=== PATIENT | male | born 1960 | race Caucasian/White ===

== ENCOUNTER 2017-12-21 09:20 | Day surgery (SDC) | payer OTHER ==
[2017-12-13 11:47] VITALS: BMI 32.8
[2017-12-21] MEDS ORDERED: PROPOFOL 20 ML ONE ×3 (11:51→12:58)
[2017-12-21] MEDS ORDERED: BUPIVACAINE HCL/EPINEPHRINE/PF 30 ML VIAL IJ ONE (12:35)
[2017-12-21] MEDS ORDERED: MIDAZOLAM HCL 2 MG/2 ML SINGLE DOSE VIAL ONE (12:50)
[2017-12-21] MEDS ORDERED: fentaNYL CITRATE 250 MCG/5 ML VIAL ONE (12:50)
[2017-12-21] MEDS ORDERED: ceFAZolin SODIUM 1 GM VIAL ONE (13:14)
--- NOTE | 2017-12-21 13:49 | DS ---
Physical Examination Vital Signs: Vital Signs Temperature 98.1 F 12/21/17 10:20 Pulse Rate 76 12/21/17 10:20 Respiratory Rate 18 12/21/17 10:20 Blood Pressure 129/79 12/21/17 10:20 O2 Sat by Pulse Oximetry (%) 97 12/21/17 10:20 Discharge Summary Reason For Visit: MEDIAL MENISCAL TEAR LEFT KNEE Condition: Good - Instructions Diet, Activity, Other Instructions: Post Operative Instructions: Knee Arthroscopy Dr Fernando Means 1. Pain following an arthroscopy is variable. Some patients will have more pain than others. You have been provided with a prescription for medication that contains a narcotic. You are not allowed to drive while on this medication. You should NOT take Tylenol (Acetaminophen) when taking the pain medication ( it will result in an overdose). Feel free to take medications such as Ibuprofen or Naprosyn in addition to the pain medicine if you do not have any problems with the NSAID class of medications. 2. You are allowed to remove the bandages and shower in 24 hours unless directed otherwise. You are not allowed to bathe or go swimming until the sutures are removed. Put band-aids on the sutures after your shower and do not put any creams or lotions over the incisions. 3. You are allowed to put all your weight on the leg and bend your knee 4. Apply ice to the knee for 15 min every hour or so. You may continue this for as many days as you like. 5. Please call the office to schedule a visit to have your sutures removed. 6. If for any reason you believe you may have an infection or are concerned, please feel free to call me. I can be reached through our office number 24 hours a day. 7. Please call our office with any questions; we will review the surgical findings during your post operative visit. Disposition: HOME - Home Medications Comprehensive Discharge Medication List: Ambulatory Orders Gabapentin 600 mg PO TID 12/13/17 Lansoprazole [Prevacid] 30 mg PO DAILY 12/21/17
--- NOTE | 2017-12-21 13:49 | OP ---
Operative Note - Note: Operative Date: 12/21/17 Pre-Operative Diagnosis: Left knee MMT (flap tear) Operation: LKA, PMM Post-Operative Diagnosis: Same as Pre-op Surgeon: Fernando Means Anesthesiologist/INFORMATION SYSTEMS SECURITY DEVELOPER: Edwardo Moran Anesthesia: General Operative Report Dictated: Yes
[2017-12-21] MEDS ORDERED: PANTOPRAZOLE 40 MG TABLET (FP) ONE (14:12)
[2017-12-21] MEDS ORDERED: oxyCODONE HCL 5 MG TABLET ONE (14:12)
[2017-12-21] MEDS ORDERED: ONDANSETRON 4 MG/2 ML VIAL IVPUSH PRN (14:27)
[2017-12-21] MEDS ORDERED: ACETAMINOPHEN 325 MG TABLET (FP) PO PRN (14:27)
[2017-12-21] MEDS ORDERED: oxyCODONE HCL 5 MG TABLET PO PRN ×2 (14:27)
[2017-12-21] MEDS ORDERED: LACTATED RINGERS SOLUTION 1,000 ML IV SCH (14:30)
[2017-12-21 14:33] VITALS: TEMP 98.6
[2017-12-21 14:37] VITALS: PULSE 66
[2017-12-21 17:06] VITALS: BP 146/85
--- NOTE | 2017-12-26 15:20 | PATH ---
Surgical Pathology Report Patient Name: KARINA LANDIS Med. Rec. #: [id number] /Age/Gender: 1960 (Age: 57) / M Account: [id number] Location: [facility] Taken: 12/21/2017 Received: 12/21/2017 Reported: 12/26/2017 Physicians: Fernando Means M.D. Specimen(s) Received SHAVINGS LEFT KNEE Clinical History Meniscal tear left knee Final Diagnosis KNEE, LEFT, ARTHROSCOPIC SHAVINGS: FIBROCARTILAGINOUS TISSUE. Electronically Signed Charisse Diaz M.D. Gross Description Received in formalin, labeled "shavings left knee," is a 2.5 x 2.5 x 0.4 cm. aggregate of gurrola-yellow soft tissue fragments. A uniforms sales representative portion is submitted in one cassette. 12/24/2017 [facility]12/24/2017
== END 2017-12-21 15:15 | disposition home or self-care (01) ==
LOC: FASU 09:20
PROVIDERS: ATTEND Orthopaedic Surgery
PROC: 0SBD4ZZ Excision of Left Knee Joint, Percutaneous Endoscopic Approach (ICD-10-PCS; principal; 2017-12-21 13:16)
DX: S83.242A Other tear of medial meniscus, current injury, left knee, initial encounter (principal); Y93.89 Activity, other specified; Y92.89 Other specified places as the place of occurrence of the external cause
CPT/HCPCS: 88304-TC